=== PATIENT | male | born 1995 | race American Indian/Alaskan Native ===

== ENCOUNTER 2020-06-13 15:15 | Emergency (ER) | payer MEDICAID ==
[~2020-06-13] VITALS: Ht 172.7 cm; Wt 50.0 kg
[~2020-06-13 15:15] MED LIST: NO HOME MEDS
[2020-06-13 16:05] LABS: BASOPHILS % (AUTO) 0.2 % (0-1); EOSINOPHILS # (AUTO) 0.1 X10'3 (0-0.9); EOSINOPHILS % (AUTO) 1.2 % (0-6); HEMOGLOBIN 13.7 g/dl (14.0-17.9); LYMPHOCYTES # (AUTO) 2.3 X10'3 (1.1-4.8); LYMPHOCYTES % (AUTO) 28.8 % (21-51); MEAN CORPUSCULAR HEMOGLOBIN 29.2 PG (27.0-31.0); MEAN CORPUSCULAR HGB CONC 33.5 g/dL (33.0-36.5); MEAN CORPUSCULAR VOLUME 87.2 FL (78-98); MEAN PLATELET VOLUME 8.5 FL (7.4-10.4); MONOCYTES # (AUTO) 0.5 X10'3 (0-0.9); MONOCYTES % (AUTO) 6.2 % (2-12); NEUTROPHILS # (AUTO) 5.1 X10'3 (1.8-7.7); NEUTROPHILS % (AUTO) 63.6 % (42-75); PLATELET COUNT 186 X10'3 (140-440); RED CELL DISTRIBUTION WIDTH 12.9 % (11.5-14.5)
[2020-06-13 16:19] LABS: ALANINE AMINOTRANSFERASE 28 U/L (12-78); ALBUMIN 4.2 G/DL (3.4-5.0); ALBUMIN/GLOBULIN RATIO 1.5 (1.1-1.5); ALKALINE PHOSPHATASE 117 IU/L (46-116); ANION GAP 7 (8-16); ASPARTATE AMINO TRANSFERASE 16 U/L (10-37); BILIRUBIN,TOTAL 0.2 MG/DL (0.1-1.0); BLOOD UREA NITROGEN 9 MG/DL (7-18); BUN/CREATININE RATIO 10.3 (5.4-32.0); CHLORIDE 105 MMOL/L (99-107); CREATININE 0.87 MG/DL (0.60-1.10); GLUCOSE 91 MG/DL (70-104); POTASSIUM 3.9 MMOL/L (3.5-5.1); SODIUM 139 MMOL/L (135-145); eGFR > 90 ML/MIN
[2020-06-13 16:20] LABS: ETHANOL < 0.010 GM/DL (0.0-0.010)
[2020-06-13 16:27] LABS: ACETAMINOPHEN < 2.0 UG/ML (10-30); VALPROATE < 3.0 UG/ML (50-100)
[2020-06-13 16:55] LABS: CREATINE KINASE 174 U/L (39-308)
--- NOTE | 2020-06-13 19:16 | NUR ---
The patient was moved to bed 22 in the ER. He presents as bizarre, disroganized and he is only oriented to himself. He denies A/V hallucinations but he is clearly responding to internal stimuli. He is making gestures in the air. His verbal replies are delayed or he doesn't answer at all. He was not able to give a history. He denies that he is having suicidal thoughts and when asked why he drank the bleach he stated, "I was trying to fix my teeth" He was informed of the need to give a urine sample.
[2020-06-13 19:54] LABS: CLARITY,URINE CLEAR (Clear); COLOR,URINE YELLOW (Yellow); GLUCOSE, URINE NEGATIVE (Neg); KETONES,URINE NEGATIVE (Neg); LEUKOCYTE ESTERASE ,URINE NEGATIVE (Neg); NITRITES, URINE NEGATIVE (Neg); OCCULT BLOOD,URINE NEGATIVE (Neg); PROTEIN,URINE NEGATIVE (Neg); UROBILINOGEN,URINE 0.2 E.U/dL (0.2-1.0)
[2020-06-13 19:56] LABS: URINE AMPHETAMINE SCREEN POSITIVE (Neg); URINE BARBITUATE SCREEN NEGATIVE (Neg); URINE BENZODIAZEPINES SCREEN NEGATIVE (Neg); URINE CANNABINOID SCREEN POSITIVE (Neg); URINE COCAINE SCREEN NEGATIVE (Neg); URINE METHADONE SCREEN NEGATIVE (Neg); URINE OPIATE SCREEN NEGATIVE (Neg); URINE PHENCYCLIDINE SCREEN NEGATIVE (Neg)
[2020-06-13 19:59] LABS: UA COLLECTION TYPE CLN CATCH MIDSTREAM
--- NOTE | 2020-06-13 20:27 | NUR ---
packet sent to [facility]
--- NOTE | 2020-06-13 21:38 | NUR ---
[facility] here to evaluate the patient
--- NOTE | 2020-06-13 22:57 | NUR ---
The patient appears to be sleeping
--- NOTE | 2020-06-14 01:25 | NUR ---
The patient appears to be sleeping
--- NOTE | 2020-06-14 02:20 | NUR ---
The patient appears to be sleeping
--- NOTE | 2020-06-14 03:35 | NUR ---
The patient appears to be sleeping
--- NOTE | 2020-06-14 03:50 | NUR ---
pt resting in bed, no signs of distress at this time, even and unlabored respirations. Will continue to montior.
--- NOTE | 2020-06-14 05:05 | NUR ---
Pt resting in bed, appears to be sleeping. Pt in no obvious distress. RR 14 even and unlabored.
--- NOTE | 2020-06-14 06:25 | NUR ---
[facility] report from JACQUIE Orantes, pt is laying on his left side, eyes closed, no needs at this time
--- NOTE | 2020-06-14 07:30 | NUR ---
pt remains asleep, no needs at this time
--- NOTE | 2020-06-14 08:30 | NUR ---
pt sitting at side of his bed, eating his breakfast, ambulated to the bathroom
--- NOTE | 2020-06-14 09:30 | NUR ---
pt is supine in bed, eyes closed, regular breathing observed, no needs at this time
--- NOTE | 2020-06-14 10:35 | NUR ---
pt is supine in bed, eyes closed, asleep, no needs at this time
--- NOTE | 2020-06-14 11:35 | NUR ---
pt is supine in bed, eyes closed, asleep, no needs at this time
--- NOTE | 2020-06-14 12:30 | NUR ---
pt is supine in bed, eyes closed, regular breathing present, no needs at this time
--- NOTE | 2020-06-14 13:00 | NUR ---
spoke to pt, he states he is feeling much better today, no thoughts of harming himself or others and no medical complaints, he has either sleptm ate meals as presented, or ambulated to the bathroom, he is calm today
--- NOTE | 2020-06-14 13:30 | NUR ---
spoke to pt mom at bedside, explained the process on next steps for pt
--- NOTE | 2020-06-14 14:12 | NUR ---
spoke to Chidi at [facility], they he will present pt to the MD and get back to us
--- NOTE | 2020-06-14 15:21 | NUR ---
rcvd call from BECCA Huertas office pt was accepted at [facility], by Dr Berry at 1438, he is to be picked up at [facility]
--- NOTE | 2020-06-14 16:57 | NUR ---
pt is asleep, regular breathing present, no needs at this time
--- NOTE | 2020-06-14 19:36 | NUR ---
The patient is resting on his bed. He denies any kind of mental health symptoms but he gives minimal verbal replies and is difficult to fully assess.
[2020-06-14 20:19] VITALS: BP 107/65
== END 2020-06-14 20:22 ==
LOC: ER 15:15
DX: F29 Unspecified psychosis not due to a substance or known physiological condition (principal); Z20.822 Contact with and (suspected) exposure to COVID-19; F17.200 Nicotine dependence, unspecified, uncomplicated; F15.90 Other stimulant use, unspecified, uncomplicated; Z72.89 Other problems related to lifestyle
CPT/HCPCS: 36415; 80053; 80164; 80178; 80305; 80320; 80329; 81003; 82550; 84443; 85025; 87426; 96361; 96365; 96375; 99285